=== PATIENT | male | born 1950 | race Caucasian/White ===

== ENCOUNTER 2023-12-29 09:33 | Outpatient (REF) | payer MEDICARE, MEDICAID, SELFPAY ==
--- NOTE | 2023-12-29 11:19 | MHC.AU.HA1 ---
Hearing Aid Evaluation Date of Visit: 12/29/23 Historical Information: Description of Hearing: Mild to severe sensorineural hearing loss bilateral. Current personal amplification information, if applicable: None. Summary: Dank recently had hearing tested at [facility]. Reports difficulty hearing when not facing the speaker. Notes feeling that he hears, but does not understand what is said. Dank has an iPhone and is interested in connecting to hearing aids to hear phone calls better. Recommended RITE style hearing aid. Dank preferred rechargeable options. Otoscopy clear Au. Hearing Aid Prescription: Based on the individual?s shared listening needs, communication environments, dexterity, desire for connectivity, and personal preferences, the following prescription for amplification has been made: Right ear: Make, Model, Color: Oticon Intent 2 R silver Battery Size: Rechargeable Communications Attendant/Slim Tube: 3/85 Type of Earmold/Dome/CShell/SlimTip: 8mm dbl moody Left ear: Make, Model, Color: Oticon Intent 2 R silver Battery Size: Rechargeable Communications Attendant/Slim Tube: 3/85 Type of Earmold/Dome/CShell/SlimTip: 8mm dbl moody Plan of Care: Patient wishes to purchase hearing aids as prescribed Action Taken/Action Needed: Hearing Instrument Fitting to be scheduled when materials arrive Primary Diagnosis: H90.3 Bilateral Sensorineural Hearing Loss Signature: Provider: Katrin Grier, [facility]
== END 2023-12-29 09:34 | disposition home or self-care (01) ==
LOC: HO.HAP 09:33
PROVIDERS: Visit Provider Otolaryngology
DX: Z46.1 Encounter for fitting and adjustment of hearing aid (principal); H90.3 Sensorineural hearing loss, bilateral
CPT/HCPCS: 92591

== ENCOUNTER 2024-01-26 09:49 | Outpatient (REF) | payer MEDICARE, MEDICAID, SELFPAY ==
--- NOTE | 2024-01-26 15:33 | MHC.AU.HA2 ---
Hearing Instrument Fitting- Adult- Binaural Date of Visit: 01/26/24 Hearing Instruments Dispensed: Right Ear: Make, Model, Color, Serial Number: Oticon Intent 2 R silver [id number] Circuit Manager Repair Warranty: 02/01/2027 Circuit Manager Loss and Damage Warranty: 02/01/2027 [facility] Service Plan: 01/25/25 Battery Size: Rechargeable Manager Athletics/Slim Tube: 3/85 Earmold/Dome/CShell/SlimTip: 8mm dbl moody Type of Wax Guard: Oticon Minifit Prowax Left Ear: Make, Model, Color, Serial Number: Oticon Intent 2 R silver [id number] Circuit Manager Repair Warranty: 02/01/2027 Circuit Manager Loss and Damage Warranty: 02/01/2027 [facility] Service Plan: 01/25/25 Battery Size: Rechargeable Manager Athletics/Slim Tube: 3/85 Earmold/Dome/CShell/SlimTip: 8mm dbl moody Type of Wax Guard: Oticon Minifit ProWax Accessories/Assistive Technology: Oticon Supervisor Cabinetmaker Minirite S#[id number] Warranty 02/01/2027 Summary of Fitting: Fit with and oriented to binaural Oticon Intent 2 R HAs. Verified to L adult 5 targets. Good subjective comfort and benefit reported. Reviewed precautions, charging, maintenance. Practiced insertion and removal. Connected with iPhone. Recommendations: Recommendations: Hearing instrument care and maintenance were discussed and practiced. The instrument(s) were paired to the patient's smartphone. A hearing instrument follow-up was scheduled. Diagnosis Code(s): Primary Diagnosis: H90.3 Bilateral Sensorineural Hearing Loss Signature: Provider: Katrin Grier, CCC-A
== END 2024-01-26 09:50 | disposition home or self-care (01) ==
LOC: HO.HAP 09:49
PROVIDERS: Visit Provider Otolaryngology
DX: Z46.1 Encounter for fitting and adjustment of hearing aid (principal); H90.3 Sensorineural hearing loss, bilateral
CPT/HCPCS: V5011; V5020; V5160; V5261

== ENCOUNTER 2024-02-23 09:59 | Outpatient (REF) | payer MEDICARE, MEDICAID, SELFPAY ==
--- NOTE | 2024-02-23 10:33 | MHC.AU.HA3 ---
Hearing Instrument Follow-Up- Binaural Date of Visit: 02/23/24 Right Ear: Make, Model, Color, Serial Number: Oticon Intent 2 R silver [id number] Registered Midwife Repair Warranty: 02/01/2027 Registered Midwife Loss and Damage Warranty: 02/01/2027 [facility] Service Plan: 01/25/25 Battery Size: Rechargeable Director Of Managed Services/Slim Tube: 3/85 Earmold/Dome/CShell/SlimTip:8mm dbl moody Type of Wax Guard: Oticon Minifit Prowax Dispensed By: [facility] Date of Fittin01/26/24 Left Ear: Make, Model, Color, Serial Number: Oticon Intent 2 R silver [id number] Registered Midwife Repair Warranty: 02/01/2027 Registered Midwife Loss and Damage Warranty: 02/01/2027 [facility] Service Plan: 01/25/25 Battery Size: Rechargeable Director Of Managed Services/Slim Tube: 3/85 Earmold/Dome/CShell/SlimTip: 8mm dbl moody Type of Wax Guard: Oticon Minifit ProWax Dispensed By: [facility] Date of Fittin01/26/24 Follow-Up Summary: Here for follow up. Upon arrival, noted Dakn has the hearing aids in the wrong ears. Reinstructed Red Right, Blue Left. Practiced correct insertion. Dank had questions about VC. Enabled VC, practiced use. Dank reports he is hearing much better with the hearing aids, sometimes too much, but he has been getting used to them. Declined additional follow up at this time. Recommendations: Recommendations: Hearing instrument follow-up or maintenance as needed. Please contact our clinic with any questions or concerns. Diagnosis Code(s): Primary Diagnosis: H90.3 Bilateral Sensorineural Hearing Loss Signature: Provider: Katrin Grier, [facility]
--- OUTSIDE RECORDS SUMMARY | 2024-02-29 01:26 | XMS_ITS | Data Portability ---
Author Organization [place] - [facility], Allergy Address [address] [address] Assessment Encounter Date Assessment Date Assessment LastModified by Organization Details LastModified Time 12/09/2023 12/09/2023 Patient presents for evaluation of ears and hearing. Otologic exam unremarkable. Audiometric testing demonstrates bilateral, symmetric, neurosensory hearing loss. Recommend binaural amplification; rationale and benefits reviewed and patient understands. Copy of audiogram provided to patient along with a medical clearance form and a list of providers who accept their insurance. Recommend annual audiometric testing, sooner with perceived change in hearing. All questions were answered. [email or web address] Not available 12/09/2023 11:29:16 12/09/2023 12/09/2023 Recommendations : Follow up with referring provider. [email or web address] Not available 12/09/2023 10:06:09 Plan of Treatment Reminders Order Date Submit Date Provider Last Modified By Organization Details Last Modified Time Details Appointments None record ed. Lab None record ed. Referral None record ed. Procedures None record ed. Surgeries None record ed. Imaging None record ed. Medication Orders None record ed. Patient TargetsNo targets recorded. Patient InstructionsNo instructions recorded. Reason for Referral None Reported. Results Created Date Observation Date Name Description Value Unit Range Abnormal Flag Note LastModifiedBy Organization Detail LastModifiedTime 12/13/19 24 audio gram No observ ation record ed. Not Available 11/20 11:59:16 Result Notes None recorded. Problems Name Problem SNOMED Code Status Onset Date Resolution Date Notes Provider Name and Address Organization Details Recorded Time Sensorineural hearing loss of bilateral ears 872760349 Active 2023 JOSIAH GOLDSMITH [address], [address], [place] - [facility] 10:06:46 Problem Notes None recorded. Procedures Surgical History Date Name Laterality Status Provider Name and Address Organization Details Recorded Time 12/09/2023 Comp Audio with Tymps (82542 & 81633) completed MARIAM FISH, AUD 100 [facility], [place], [address], [facility] - [facility] 12/09/2023 10:06:42 Imaging Results Imaging Date Name Status LastModified by Organiz ation Details LastModified Time 12/13/2023 audiogram completed [email or web address] Information n ot available 12/13/2023 11:59:16 Procedure Notes None recorded. Medical Equipment None Reported. Medications Name Sig Start Date Stop Date Status Note LastModified by Organization Details LastModified Time atorvastatin 40 mg tablet TAKE 1 TABLET BY MOUTH EVERY DAY active Not Available Not Available No t Available ofloxacin 0.3 % eye drops INSTILL 1 DROP IN RIGHT EYE FOUR TIMES A DAY TO BEGIN 6 HOURS AFTER SURGERY AND CONTINUE FOR 7 DAYS active Not Available Not Available N ot Available clopidogrel 75 mg tablet TAKE 1 TABLET BY MOUTH EVERY DAY active Not Available Not Available No t Available ketorolac 0.5 % eye drops INSTILL 1 DROP IN RIGHT EYE FOUR TIMES A DAY TO BEGIN 6 HOURS AFTER SURGERY AND CONTINUE UNTIL EMPTY active Not Available Not Available No t Available meloxicam 7.5 mg tablet TAKE 1 TABLET BY MOUTH 2 TIMES DAILY NEEDED FOR PAIN FOR UP TO 10 DAYS. active Not Available Not Available No t Available betamethasone , augmented 0.05 % lotion APPLY TOPICALLY TO THE AFFECTED AREA TWICE DAILY FOR 10 DAYS active Not Available Not Available No t Available prednisolone acetate 1 % eye drops,suspens ion INSTILL 1 DROP IN RIGHT EYE FOUR TIMES A DAY TO BEGIN 6 HOURS AFTER SURGERY AND CONTINUE UNTIL EMPTY active Not Available Not Available No t Available cefuroxime axetil 500 mg tablet TAKE 1 TABLET BY MOUTH TWICE DAILY FOR 7 DAYS active Not Available Not Available No t Available lisinopril 40 mg tablet TAKE 1 TABLET BY MOUTH EVERY DAY active Not Available Not Available No t Available amoxicillin 500 mg-potassium clavulanate 125 mg tablet TAKE 1 TABLET BY MOUTH THREE TIMES A DAY FOR 10 DAYS active Not Available Not Available No t Available bacitracin-po lymyxin B 500 unit-10,000 unit/gram eye ointment APPLY 1/2 INCH RIBBON TO LEFT EYE 4 TIMES A DAY FOR 10 DAYS active Not Available Not Available No t Available Lumigan 0.01 % eye drops PUT 1 DROP IN RIGHT EYE AT BEDTIME active Not Available Not Available No t Available Jardiance 25 mg tablet TAKE 1 TABLET BY MOUTH EVERY DAY active Not Available Not Available No t Available Vitals Date Recorded Body height Body mass index (BMI) Body weight Provider Name and Address Organization Details Last Updated DateTime 12/09/2023 175.26 cm 34 kg/m2 991649.25 g Hilaria Phillips [place] - [facility] 12/09/2023 10:38:11 Social History None recorded. Functional Status None recorded. Mental Status None recorded. Family History Nothing Reported. Medical History No medical history recorded. Past Encounters Encounter ID Performer Location Encounter Start Date Encounter Closed Date Diagnosis/Indication Diagnosis SNOMED-CT Code Diagnosis ICD10 Code [id number] GLADYS DURAN PA-C [facility] [address] [address] 12/09/2023 09:47:48 12/09/2023 10:58:26 Sensorineural hearing loss of bilateral ears 011872864 H90.3 [id number] JOSIAH GOLDSMITH [facility] [address] [address] 12/09/2023 10:05:19 12/12/2023 07:05:44 Sensorineural hearing loss of bilateral ears 970896219 H90.3 Health Concerns Section Related Observation LastModified by Organization Detai ls LastModified Time None Recorded Concern Status LastModified by Organization Details LastModified Time None Recorded Advance Directives Directive None Recorded Payers Encounter Date Sequence Insurance Name Policy Number Policy Osborn Covered Member ID Osborn Member ID Guarantor Name 12/09/2023 1 [place]IC[place] B-[place]: [employer] Dank Osorio [id number] Dank Osorio 12/09/2023 2 [place] [facility] Dank Osorio [id number] Dank Osorio 12/09/2023 1 [place] B-[place]: [facility] [employer] Dank Osorio [id number] Dank Osorio 12/09/2023 2 [place]: [facility] Dank Osorio [id number] Dank Osorio Notes Date Note Type Note Provider Name and Address Organization Details Recorded Time 12/09/2023 text/html Audiological Evaluation HPIReported bypatient.Hearing loss perceived:hearing loss in both ears: no differences noted between ears Onset:gradual Use of amplification or other hearing devices:none (does not use amplification) JOSIAH GOLDSMITH 100 [facility],[address], [address], [facility] 12/09/2023 10:08:53 12/09/2023 text/html 73-year-old male presents for evaluation of ears and hearing. He reports a gradual decline in hearing over the last several years. He denies otalgia, otorrhea, tinnitus, and vertigo. He has no significant otologic history and has never had an otologic surgery. He denies history of excessive noise exposure over the lifespan. GLADYS DURAN PA-C 100 [facility],[address] [address], [place], [address], [facility] - [facility] 12/09/2023 11:29:29
--- OUTSIDE RECORDS SUMMARY | 2024-02-29 01:26 | XMS_ITS | Continuity of Care Document ---
Author Organization [place] - [facility], [facility] Address [address] [place] [address] Assessment Encounter Date Assessment Date Assessment LastModified [...] were answered. [email or web address] Not available 12/09/2023 11:29:16 Plan of Treatment Reminders Order Date Submit [...] audio gram No observ ation record ed. [email or web address] Not Available 11/20 11:59:16 Result Notes None recorded. Problems Name Problem SNOMED Code Status Onset Date Resolution Date Notes Provider Name and Address Organization Details Recorded Time Sensorineural hearing loss of bilateral ears 245271162 Active 2023 JOSIAH GOLDSMITH [address], [address], [facility] - [facility] 10:06:46 Problem Notes None recorded. Procedures Surgical History Date Name Laterality Status Provider Name and Address Organization Details Recorded Time 12/09/2023 Comp Audio with Tymps (69367 & 25409) completed MARIAM FISH, [facility] 100 [facility],[address] [address], [place], [address], [place] - [facility] 12/09/2023 10:06:42 Imaging Results None recorded. Procedure Notes None recorded. Medical Equipment None [...] Updated DateTime 12/09/2023 175.26 cm 34 kg/m2 675732.25 g Hilaria Phillips [place] - [facility] 12/09/2023 10:38:11 Social History None recorded. Functional Status None recorded. Mental Status None recorded. Family History Nothing Reported. Medical History No medical history recorded. Past Encounters Encounter ID Performer Location Encounter Start Date Encounter Closed Date Diagnosis/Indication Diagnosis SNOMED-CT Code Diagnosis ICD10 Code [id number] LGADYS DURAN PA-C [facility] of [address] [address] 12/09/2023 09:47:48 12/09/2023 10:58:26 Sensorineural hearing loss of bilateral ears 461366376 H90.3 [id number] JOSIAH GOLDSMITH [facility] of [address] [address] 12/09/2023 10:05:19 12/12/2023 07:05:44 Sensorineural hearing loss of bilateral ears 515182013 H90.3 Health Concerns Section Related Observation LastModified by Organization Detai ls LastModified Time None Recorded Concern Status LastModified by Organization Details LastModified Time None Recorded Payers Encounter Date Sequence Insurance Name Policy Number Policy Osborn Covered Member ID Osborn Member ID Guarantor Name 12/09/2023 1 [place]: [employer] Dank Osorio [id number] Dank Osorio 12/09/2023 2 [place] [facility] Dank Osorio [id number] Dank Osorio Notes Date Note Type Note Provider Name and Address Organization Details Recorded Time 12/09/2023 text/html Audiological Evaluation HPIReported bypatient.Hearing loss perceived:hearing loss in both ears: no differences noted between ears Onset:gradual Use of amplification or other hearing devices:none (does not use amplification) JOSIAH GOLDSMITH [address] [address], [place], [address], [facility] - [facility] 12/09/2023 10:08:53 12/09/2023 text/html 73-year-old male presents for evaluation of ears and hearing. He reports a gradual decline in hearing over the last several years. He denies otalgia, otorrhea, tinnitus, and vertigo. He has no significant otologic history and has never had an otologic surgery. He denies history of excessive noise exposure over the lifespan. GLADYS DURAN PA-C [address] [place] [address], [phone], [facility] - [facility] 12/09/2023 11:29:29
--- OUTSIDE RECORDS SUMMARY | 2024-02-29 01:26 | XMS_ITS | Continuity of Care Document ---
Author Organization [place] - [facility], [facility] Address [address] [place] [address] Assessment Encounter Date Assessment Date Assessment LastModified by Organization Details LastModified Time 12/09/2023 12/09/2023 Recommendatio ns: Follow up with referring provider. [email or web address] Not [...] audio gram No observ ation record ed. [email or web address] Not Available 11/20 11:59:16 Result Notes None recorded. Problems Name Problem SNOMED Code Status Onset Date Resolution Date Notes Provider Name and Address Organization Details Recorded Time Sensorineural hearing loss of bilateral ears 694139604 Active 2023 JOSIAH GOLDSMITH [address], [address], [place] - [facility] 10:06:46 Problem Notes None recorded. Procedures Surgical History Date Name Laterality Status Provider Name and Address Organization Details Recorded Time 12/09/2023 Comp Audio with Tymps (93096 & 26966) completed JOSIAH GOLDSMITH [address], [address], [place] - [facility] 12/09/2023 10:06:42 Imaging Results None recorded. [...] Updated DateTime 12/09/2023 175.26 cm 34 kg/m2 028576.25 g Hilaria Phillips [place] - [facility] 12/09/2023 10:38:11 Social History None recorded. Functional Status None recorded. Mental Status None recorded. Family History Nothing Reported. Medical History No medical history recorded. Past Encounters Encounter ID Performer Location Encounter Start Date Encounter Closed Date Diagnosis/Indication Diagnosis SNOMED-CT Code Diagnosis ICD10 Code [id number] GLADYS DURAN PA-C [facility] of [address] [address] 12/09/2023 09:47:48 12/09/2023 10:58:26 Sensorineural hearing loss of bilateral ears 453108329 H90.3 [id number] JOSIAH GOLDSMITH [facility] of [address] [address] 12/09/2023 10:05:19 12/12/2023 07:05:44 Sensorineural hearing loss of bilateral ears 220705269 H90.3 Health Concerns Section Related Observation LastModified by Organization Detai ls LastModified Time None Recorded Concern Status LastModified by Organization Details LastModified Time None Recorded Payers Encounter Date Sequence Insurance Name Policy Number Policy Osborn Covered Member ID Osborn Member ID Guarantor Name 12/09/2023 1 [place] B[place]: [employer] Dank Heriberto Osorio [id number] Dank Osorio 12/09/2023 2 [place] Dankludmila Osorio [id number] Dank Osorio Notes Date Note Type Note Provider Name and Address Organization Details Recorded Time 12/09/2023 text/html Audiological Evaluation HPIReported bypatient.Hearing loss perceived:hearing loss in both ears: no differences noted between ears Onset:gradual Use of amplification or other hearing devices:none (does not use amplification) JOSIAH GOLDSMITH [address] [place] [address], [address], [facility] 12/09/2023 10:08:53 12/09/2023 text/html 73-year-old male presents for evaluation of ears and hearing. He reports a gradual decline in hearing over the last several years. He denies otalgia, otorrhea, tinnitus, and vertigo. He has no significant otologic history and has never had an otologic surgery. He denies history of excessive noise exposure over the lifespan. GLADYS DURAN PA-C [address] [address], [place], [address], [place] - [facility] 12/09/2023 11:29:29
== END 2024-02-23 10:00 | disposition home or self-care (01) ==
LOC: HO.HAP 09:59
PROVIDERS: Visit Provider Otolaryngology
DX: Z13.89 Encounter for screening for other disorder (principal)

== ENCOUNTER 2024-03-08 09:49 | Outpatient (REF) | payer MEDICARE, MEDICAID, SELFPAY ==
--- OUTSIDE RECORDS SUMMARY | 2024-03-08 09:52 | XMS_ITS | Continuity of Care Document ---
Author Organization [place] - [facility], [facility] Address [address] [place] [address] Assessment Encounter Date Assessment Date Assessment LastModified [...] audio gram No observ ation record ed. [email or web address] Not Available 11/20 11:59:16 Result Notes None recorded. Problems Name Problem SNOMED Code Status Onset Date Resolution Date Notes Provider Name and Address Organization Details Recorded Time Sensorineural hearing loss of bilateral ears 324810751 Active 2023 JOSIAH GOLDSMITH [address], [address], [facility] - [facility] 10:06:46 Problem Notes None recorded. Procedures Surgical History Date Name Laterality Status Provider Name and Address Organization Details Recorded Time 12/09/2023 Comp Audio with Tymps (40135 & 15957) completed MARIAM FISH, [facility] 100 [facility],[address] [address], [place], [address], [place] - [facility] 12/09/2023 10:06:42 Imaging Results None recorded. [...] Updated DateTime 12/09/2023 175.26 cm 34 kg/m2 860340.25 g Hilaria Phillips [place] - [facility] 12/09/2023 10:38:11 Social History None recorded. Functional Status None recorded. Mental Status None recorded. Family History Nothing Reported. Medical History No medical history recorded. Past Encounters Encounter ID Performer Location Encounter Start Date Encounter Closed Date Diagnosis/Indication Diagnosis SNOMED-CT Code Diagnosis ICD10 Code [id number] GLADYS DURAN PA-C [facility] of [address] [address] 12/09/2023 09:47:48 12/09/2023 10:58:26 Sensorineural hearing loss of bilateral ears 881467434 H90.3 [id number] JOSIAH GOLDSMITH [facility] of [address] [address] 12/09/2023 10:05:19 12/12/2023 07:05:44 Sensorineural hearing loss of bilateral ears 283685483 H90.3 Health Concerns Section Related Observation LastModified by Organization Detai ls LastModified Time None Recorded Concern Status LastModified by Organization Details LastModified Time None Recorded Payers Encounter Date Sequence Insurance Name Policy Number Policy Osborn Covered Member ID Osborn Member ID Guarantor Name 12/09/2023 1 [place] [employer] Dank Osorio [id number] Dank Osorio 12/09/2023 2 [place]: [facility] Dank Osorio [id number] Dank Osorio Notes Date Note Type Note Provider Name and Address Organization Details Recorded Time 12/09/2023 text/html Audiological Evaluation HPIReported bypatient.Hearing loss perceived:hearing loss in both ears: no differences noted between ears Onset:gradual Use of amplification or other hearing devices:none (does not use amplification) JOSIAH GOLDSMITH [address] [address], [place], [address], [facility] - [facility] 12/09/2023 10:08:53 12/09/2023 text/html 73-year-old male presents for evaluation of ears and hearing. He reports a gradual decline in hearing over the last several years. He denies otalgia, otorrhea, tinnitus, and vertigo. He has no significant otologic history and has never had an otologic surgery. He denies history of excessive noise exposure over the lifespan. GLADYS DURAN PA-C [address] [place] [address], [address], [facility] - [facility] 12/09/2023 11:29:29
--- OUTSIDE RECORDS SUMMARY | 2024-03-08 09:52 | XMS_ITS | Data Portability ---
Author Organization [place] - [facility], Allergy Address [address] [address] Assessment Encounter Date Assessment Date Assessment LastModified [...] audio gram No observ ation record ed. [email or web address] Not Available 11/20 11:59:16 Result Notes None recorded. Problems Name Problem SNOMED Code Status Onset Date Resolution Date Notes Provider Name and Address Organization Details Recorded Time Sensorineural hearing loss of bilateral ears 690753609 Active 2023 JOSIAH GOLDSMITH [address], [address], [place] - [facility] 10:06:46 Problem Notes None recorded. Procedures Surgical History Date Name Laterality Status Provider Name and Address Organization Details Recorded Time 12/09/2023 Comp Audio with Tymps (23417 & 25772) completed MARIAM FISH, AUD 100 [facility] 100, [place], [address], [facility] - [facility] 12/09/2023 10:06:42 Imaging Results Imaging Date Name Status LastModified by Organiz ation Details LastModified Time 12/13/2023 audiogram completed [email or web address] Information n ot available 12/13/2023 11:59:16 Procedure [...] Updated DateTime 12/09/2023 175.26 cm 34 kg/m2 552812.25 g Hilaria Phillips [place] - [facility] 12/09/2023 10:38:11 Social History None recorded. Functional Status None recorded. Mental Status None recorded. Family History Nothing Reported. Medical History No medical history recorded. Past Encounters Encounter ID Performer Location Encounter Start Date Encounter Closed Date Diagnosis/Indication Diagnosis SNOMED-CT Code Diagnosis ICD10 Code [id number] GLADYS DURAN PA-C [facility] [address] [address] 12/09/2023 09:47:48 12/09/2023 10:58:26 Sensorineural hearing loss of bilateral ears 255405467 H90.3 [id number] JOSIAH GOLDSMITH [facility] [address] [address] 12/09/2023 10:05:19 12/12/2023 07:05:44 Sensorineural hearing loss of bilateral ears 996621286 H90.3 Health Concerns Section Related Observation LastModified by Organization Detai ls LastModified Time None Recorded Concern Status LastModified by Organization Details LastModified Time None Recorded Advance Directives Directive None Recorded Payers Encounter Date Sequence Insurance Name Policy Number Policy Osborn Covered Member ID Osborn Member ID Guarantor Name 12/09/2023 1 MEDICARE B-[place]: [employer] Dank Osorio [id number] Dank Osorio 12/09/2023 2 [place] [facility] Dank Osorio [id number] Dank Osorio 12/09/2023 1 MED[place] B-[place]: [facility] [employer] Dank Osorio [id number] Dank Osorio 12/09/2023 2 [place] [facility] Dank Osorio [id number] Dank Osorio Notes Date Note Type Note Provider Name and Address Organization Details Recorded Time 12/09/2023 text/html Audiological Evaluation HPIReported bypatient.Hearing loss perceived:hearing loss in both ears: no differences noted between ears Onset:gradual Use of amplification or other hearing devices:none (does not use amplification) JOSIAH GOLDSMITH 100 [facility],[address], [address], [facility] 12/09/2023 10:08:53 12/09/2023 text/html 73-year-old male presents for evaluation of ears and hearing. He reports a gradual decline in hearing over the last several years. He denies otalgia, otorrhea, tinnitus, and vertigo. He has no significant otologic history and has never had an otologic surgery. He denies history of excessive noise exposure over the lifespan. GLADYS DURAN PA-C 100 [facility],[address] [address], [place], [address], [facility] - [facility] 12/09/2023 11:29:29
--- OUTSIDE RECORDS SUMMARY | 2024-03-08 09:52 | XMS_ITS | Continuity of Care Document ---
Author Organization [place] - [facility], [facility] Address [address] [place] [address] Assessment Encounter Date Assessment Date Assessment LastModified [...] audio gram No observ ation record ed. [email or web address] Not Available 11/20 11:59:16 Result Notes None recorded. Problems Name Problem SNOMED Code Status Onset Date Resolution Date Notes Provider Name and Address Organization Details Recorded Time Sensorineural hearing loss of bilateral ears [id number] Active 2023 JOSIAH GOLDSMITH [address], [address], [place] - [facility] 10:06:46 Problem Notes None recorded. Procedures Surgical History Date Name Laterality Status Provider Name and Address Organization Details Recorded Time 12/09/2023 Comp Audio with Tymps (28578 & 96376) completed JOSIAH GOLDSMITH [address], [address], [place] - [facility] 12/09/2023 10:06:42 Imaging Results None recorded. Procedure [...] Updated DateTime 12/09/2023 175.26 cm 34 kg/m2 093527.25 g Hilaria Phillips [place] - [facility] 12/09/2023 10:38:11 Social History None recorded. Functional Status None recorded. Mental Status None recorded. Family History Nothing Reported. Medical History No medical history recorded. Past Encounters Encounter ID Performer Location Encounter Start Date Encounter Closed Date Diagnosis/Indication Diagnosis SNOMED-CT Code Diagnosis ICD10 Code [id number] GLADYS DURAN PA-C [facility] [address] [address] 12/09/2023 09:47:48 12/09/2023 10:58:26 Sensorineural hearing loss of bilateral ears 347114273 H90.3 [id number] JOSIAH GOLDSMITH [facility] [address] [address] 12/09/2023 10:05:19 12/12/2023 07:05:44 Sensorineural hearing loss of bilateral ears 602777779 H90.3 Health Concerns Section Related Observation LastModified by Organization Detai ls LastModified Time None Recorded Concern Status LastModified by Organization Details LastModified Time None Recorded Payers Encounter Date Sequence Insurance Name Policy Number Policy Osborn Covered Member ID Osborn Member ID Guarantor Name 12/09/2023 1 [place] B-[place]: [employer] Dank Heriberto Osorio [id number] Dank sOorio 12/09/2023 2 [place]: [facility] Dankludmila Osorio [id number] Dank Osorio Notes Date Note Type Note Provider Name and Address Organization Details Recorded Time 12/09/2023 text/html Audiological Evaluation HPIReported bypatient.Hearing loss perceived:hearing loss in both ears: no differences noted between ears Onset:gradual Use of amplification or other hearing devices:none (does not use amplification) JOSIAH GOLDSMITH [address] [place] [address], [address], [facility] 12/09/2023 10:08:53 12/09/2023 text/html 73-year-old male presents for evaluation of ears and hearing. He reports a gradual decline in hearing over the last several years. He denies otalgia, otorrhea, tinnitus, and vertigo. He has no significant otologic history and has never had an otologic surgery. He denies history of excessive noise exposure over the lifespan. GLADYS DURAN PA-C [address] [address], [place], [address], [place] - [facility] 12/09/2023 11:29:29
--- NOTE | 2024-03-08 10:31 | MHC.AU.HA3 ---
Hearing Instrument Follow-Up- Binaural Date of Visit: 03/08/24 Right Ear: Make, Model, Color, Serial Number: Oticon Intent 2 R silver [id number] [employer] Technical Repair Warranty: 02/01/2027 [employer] Technical Loss and Damage Warranty: 02/01/2027 [facility] Service Plan: 01/25/25 Battery Size: Rechargeable Press Service Reader/Slim Tube: 3/85 Earmold/Dome/CShell/SlimTip:8mm dbl moody Type of Wax Guard: Oticon Minifit Prowax Dispensed By: [facility] Date of Fittin01/26/24 Left Ear: Make, Model, Color, Serial Number: Oticon Intent 2 R silver [id number] [employer] Technical Repair Warranty: 02/01/2027 [employer] Technical Loss and Damage Warranty: 02/01/2027 [facility] Service Plan: 01/25/25 Battery Size: Rechargeable Press Service Reader/Slim Tube: 3/85 Earmold/Dome/CShell/SlimTip: 8mm dbl moody Type of Wax Guard: Oticon Minifit ProWax Dispensed By: [facility] Date of Fittin01/26/24 Follow-Up Summary: Dank reports his left hearing aid is not working. He reports he had someone change the dome and wax guard for him and it still isn't working. Found dome with a coating of wax. Wax guard occluded. Changed both together. Listening check positive. Otoscopy clear As. Recommendations: Recommendations: Hearing instrument follow-up or maintenance as needed. Diagnosis Code(s): Primary Diagnosis: H90.3 Bilateral Sensorineural Hearing Loss Signature: Provider: Katrin Grier, [facility]
== END 2024-03-08 09:50 | disposition home or self-care (01) ==
LOC: HO.HAP 09:49
DX: Z13.89 Encounter for screening for other disorder (principal)